=== PATIENT | male | born 1945 | race Caucasian/White ===

== ENCOUNTER → 2020-06-15 | Outpatient (CLI) | payer OTHER ==
[~2020-06-15] VITALS: Ht 185.4 cm; Wt 99.8 kg
[~2020-06-15] MED LIST: ASA81BEC PO; GLYBURIDE 5 MG T5 M1 PO; IBUPROFEN 800800 M1 PO; JARDIANCE10 MG PO; PROSTATE HEALT1 EAC1 PO; ROSUVASTATIN CA20 MG PO; TRULICITY0.75 MG/0. SUBQ
--- NOTE | ~2020-06-15 | H ---
[facility] [place] [address] HISTORY AND PHYSICAL Name: BHAVANA EDMOND Room #: PRE [facility] M..#: [id number] Admission: Attend Phys: Noah Carrasco MD Discharge: Date of : 47 Report #: [id number] THIS REPORT FOR: cc: FAM - Family physician unknown FAM - Family physician unknown Noah Carrasco MD ~ CC: [facility] unknown Noah Carrasco His procedure is scheduled for 06/15. HISTORY OF PRESENT ILLNESS: The patient has bilateral tail of parotid lesions. He has noted bilateral parotid masses for a number of years. The one on the left seems to be a little bit larger and tends to be more tender than the opposite side. 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 PAST MEDICAL HISTORY: Otherwise, significant for diabetes and a previous stroke. MEDICATIONS: Include glyburide, aspirin, and rosuvastatin. ALLERGIES: He has no known drug allergies. PHYSICAL EXAMINATION: He has bilateral tail of parotid lesions. The right mass approximately 2 cm in greatest diameter and somewhat firm, but mobile. The left side is approximately 4 cm in greatest diameter and is firm, but mobile. It is somewhat tender. There were no other masses or adenopathy palpated. 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 The left side seems to be larger and more symptomatic. PLAN: Left partial parotidectomy without facial nerve dissection. By: 1730 1802 MD wilbert Obregon
[2020-06-15 07:35] VITALS: BP 104/59
--- NOTE | 2020-06-15 07:51 | EKG ---
[facility] [place] [address] ELECTROCARDIOGRAM REPORT Name: BHAVANA EDMOND Room #: [address] [place] [address] M.R.#: [id number] Admission: 06/15/20 Attend Phys: Noah Carrasco MD Discharge: Date of : 47 Report #: [id number] THIS REPORT FOR: cc: Julius Campoverde Timothy J. 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
[2020-06-15 09:03] LABS: CHOLESTEROL 178 mg/dL (<200); HDL CHOLESTEROL 35 mg/dL (>40); LDL CHOLESTEROL 104 mg/dL (<100); TC:HDL 5.1 Ratio (Not establshd); TRIGLYCERIDE 196 mg/dL (<150); VLDL 39 mg/dL (<40)
--- NOTE | 2020-06-15 10:33 | EXE ---
[facility] [place] [address] STRESS ECHOCARDIOGRAM Name: BHAVANA EDMOND Room #: 150-1 [facility]#: [id number] Admission: 06/15/20 Attend Phys: Noah Carrasco MD Discharge: Date of : 47 Report #: [id number] THIS REPORT FOR: cc: Julius Campoverde,Tio Shelton MD [facility] ~ THIS REPORT FOR: //name// APPROVED REPORT Study performed: 06/15/2020 08:20:16 Exam: Stress Echocardiogram Indication: Hypertension Patient Location: Echo lab Room #: 2 Status: routine Ht: 6 ft 0 in HR: 81 bpm BP: 112/72 mmHg Rhythm: NSR Medical History Medical History: HTN, Diabetes Cardiac Risk Factors: HTN, DM Exercise History: Sedentary Procedure The patient underwent an Exercise Stress Test using the David Protocol. Blood pressure, heart rate, and EKG were monitored. An Echocardiogram was performed by alignment technician in four stages in quad fashion. At peak stress, four selected images were obtained and placed side by side with resting images for comparison. Stress Test Details Stress Test: Exercise stress testing was performed using a David protocol. HR Resting HR: 81 bpm Max Heart Rate (APMHR): 146 bpm Max HR Achieved: 133 bpm Target HR (85% APMHR): 124 bpm % of APMHR: 91 Recovery HR: 87 bpm HR response to stress: Normal HR response to stress [facility] [address] [place] [address] STRESS ECHOCARDIOGRAM Name: BHAVANA EDMOND Room #: 150-1 [facility]#: [id number] Admission: 06/15/20 Attend Phys: Noah Carrasco, Discharge: Date of : 47 Report #: [id number] Resting BP: 112/72 mmHg Max BP: 152/62 mmHg Recovery BP: 110/62 mmHg BP response to stress: Normal blood pressure response to stress. ECG Resting ECG: Sinus Rhythm, NSSTT changes Stress ECG: Sinus Rhythm, NSSTT changes Clinical Reason for Termination: Maximal effort Exercise duration: 4 min 50 sec Highest Stage Achieved: Stage 2: 2.5 mph at 12% grade. Exercise capacity: 7.0 METs Overall Exercise Capacity for Age: Average Pre-Stress Echo The resting Echocardiogram showed normal left ventricular contractility with an estimated Ejection Fraction of about >55%. The resting echocardiogram demonstrated normal wall motion in all wall segments. Post-Stress Echo The stress Echocardiogram showed normal left ventricular contractility with an estimated Ejection Fraction of about 65-70%. Compared to rest, there were no stress-induced wall motion abnormalities. Conclusion Clinical Response: Non-ischemic Exercise Capacity: Below Average Stress ECG Response: Non-ischemic Stress Echo Images: Non-ischemic No prior study available for comparison. Other Information Study Quality: Good <ELECTRONICALLY SIGNED> By: Tio Morris MD, FACC 06/15/201031 31 31 Tio Morris MD, [facility] /INF
--- NOTE | 2020-06-15 14:24 | EKG ---
[facility] [place] [address] ELECTROCARDIOGRAM REPORT Name: BHAVANA EDMOND Room #: [address] [place] [address] M..#: [id number] Admission: 06/15/20 Attend Phys: Noah Carrasco MD Discharge: Date of : 47 Report #: [id number] THIS REPORT FOR: cc: Julius Campoverde,Topher Holloway MD [facility] THIS REPORT FOR: //name// [facility] Test Date: 2020-06-15 Test Time: 07:09:35 Pat Name: BHAVANA EDMOND Department: Room: 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
[2020-06-16 02:06] LABS: GLYCOHEMOGLOBIN (HGB A1C) 7.4 % (4.8-5.6)
== END | disposition home or self-care (01) ==
LOC: TBA 06:04 → CV 06:04 → OR 06:04 → EDSTATUS 06-29 15:39
PROVIDERS: Nurse Practitioner Adult Health; ATTEND Otolaryngology
DX: I10 Essential (primary) hypertension (principal); E11.9 Type 2 diabetes mellitus without complications; F17.210 Nicotine dependence, cigarettes, uncomplicated; Z98.890 Other specified postprocedural states; Z86.73 Personal history of transient ischemic attack (TIA), and cerebral infarction without residual deficits; Z79.899 Other long term (current) drug therapy; Z79.82 Long term (current) use of aspirin

== ENCOUNTER 2020-06-29 06:12 | Day surgery (SDC) | payer OTHER ==
[~2020-06-29] VITALS: Ht 185.4 cm; Wt 89.4 kg
[2020-06-29 07:05] VITALS: BP 119/73
[2020-06-29 09:12] VITALS: BP 119/73
--- NOTE | 2020-07-01 17:06 | PATH ---
[facility] [address] [place] [address] PATHOLOGY RPT PROCEDURE Name: HECTOR SMITH Room #: DEP [facility] M.R.#: [id number] Admission: 06/29/20 Date of : 47 Discharge: 06/29/20 Report #: [id number] Path Case #: [id number] [facility] Accession Number: [id number] . 01 Material submitted: . parotid gland - LEFT PAROTID TUMOR. Modifiers: left . 01 Clinical history: . BENIGN NEOPLASM OF PAROTID GLAND . 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 - Negative for malignancy. - Inked margin free of lesion. 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 02 Electronically signed: . Kamilah Okeefe MD, Pathologist NPI- [id number] . 01 Gross description: . The specimen is received in formalin, labeled "Hector Smith", "left parotid tumor". Received is a well-circumscribed, intact parotid gland weighing 6 g and measures 3.2 x 2.5 x 1.5 cm. The outer surface is wrinkled, shiny and pale [id number]. The surgical resection margin is inked black. Sectioning reveals a slightly friable, pale ruby lobulated cut surface that appears to be homogenous throughout. No distinct solid masses or nodule is easily distinguished from the remainder of the tissue. The specimen is sectioned and entirely submitted in cassettes A1 to A7.([facility]; 06/30/2020) ADRIAN/RELL 07/01/2020 [facility] Local . 02 Pathologist provided ICD-10: D11.0 . 02 CPT . 554701 Specimen Comment: A courtesy copy of this report has been sent to [phone] Specimen Comment: [id number] Specimen Comment: Report sent to / DR KNIGHT Performed at: [address], [place] [id number] MD Chuy Pichardo MD Phone: [phone] [address] [address] PATHOLOGY RPT PROCEDURE Name: HECTOR SMITH Room #: DEP [facility].#: [id number] Admission: 06/29/20 Date of : 47 Discharge: 06/29/20 Report #: [id number] Path Case #: [id number] Performed at: 02 [facility] [address] [facility] [place], [place] [id number] MD Kamilah Okeefe MD Phone: [phone]
--- NOTE | 2020-07-06 08:57 | O ---
[facility] [place] [address] OPERATIVE REPORT Name: BHAVANA EDMOND Room #: DEP [facility]#: [id number] Admission: 06/29/20 Attend Phys: Noah Carrasco MD Discharge: 06/29/20 Date of : 47 Report #: [id number] THIS REPORT FOR: cc: Julius Campoverde,Julius Carrasco,Noah Knox MD ~ CC: Noah Campoverde DATE OF SERVICE: 06/29/2020 PREOPERATIVE DIAGNOSIS: Parotid tumor. POSTOPERATIVE DIAGNOSIS: Parotid tumor. OPERATIVE PROCEDURE: Left superficial parotidectomy without facial nerve dissection. ANESTHESIA: General by laryngeal mask. DESCRIPTION OF PROCEDURE: The patient was taken to the operating room and placed in supine position. General anesthesia was induced by laryngeal mask. Once adequate general anesthesia was obtained, the patient was draped in a sterile manner. Local anesthesia was induced by subcutaneous infiltration of 1% lidocaine with 1:100,000 epinephrine. An incision was placed in the left neck down through the skin and subcutaneous tissue and through the platysma muscle. The incision was placed immediately over an obvious parotid tumor about 2 fingerbreadths below the angle of mandible. I dissected off of the sternocleidomastoid muscle anteriorly and found the parotid tumor, it was brown and cystic. I was able to circumferentially dissect the tumor from the bed by dissecting it off of the sternocleidomastoid muscle, then off of the digastric muscle and then following it upward to the tail of the parotid gland. It shelled out very easily, a couple of small vessels were ligated. The area was then irrigated with normal saline. The platysma and subcutaneous tissue was closed with 4-0 Vicryl suture. A 10-Azeri round Juan A drain was left in the wound. The skin was closed with 5-0 Prolene suture. Blood loss was 10 mL. The patient was then awoken and taken to the recovery room in stable condition for postoperative monitoring. <ELECTRONICALLY SIGNED> By: Noah Carrasco MD 07/06/20 0857 0857 0910 Noah Carrasco MD /nt
== END 2020-06-29 09:45 | disposition home or self-care (01) ==
LOC: OR 06:12 → TBA 06:12 → OR 09:45
PROVIDERS: ATTEND Otolaryngology
DX: D11.0 Benign neoplasm of parotid gland (principal); Z98.890 Other specified postprocedural states; Z79.899 Other long term (current) drug therapy; Z79.82 Long term (current) use of aspirin
CPT/HCPCS: 50101; 50386; 50398; 56524; 56526; 56528; 57006; 62110; 62900; 70005